=== PATIENT | female | born 1980 | race Caucasian/White ===

== ENCOUNTER 2017-05-09 05:38 | Day surgery (SDC) | payer BC ==
[~2017-05-09] VITALS: Ht 154.9 cm; Wt 68.0 kg
[~2017-05-09 05:38] MED LIST: ADVIL200 MG PO; DETROL LA4 MG PO
[2017-05-09 06:06] VITALS: BP 120/84
[2017-05-09 09:00] VITALS: BP 143/78
[2017-05-09 09:50] VITALS: BP 155/79
== END 2017-05-09 09:55 | disposition home or self-care (01) ==
LOC: SDC 05:38
PROC: 0U5B8ZZ Destruction of Endometrium, Via Natural or Artificial Opening Endoscopic (ICD-10-PCS; principal; 2017-05-09)
DX: N92.0 Excessive and frequent menstruation with regular cycle (principal); Z87.891 Personal history of nicotine dependence
CPT/HCPCS: 88305; J0131; J1100; J1885; J2250; J2405; J3010